=== PATIENT | male | born 1965 | race Caucasian/White ===

== ENCOUNTER 2016-11-21 08:55 | Inpatient (IN) | payer OTHER ==
[~2016-11-21] VITALS: Ht 154.9 cm; Wt 71.5 kg
[~2016-11-21 08:55] MED LIST: PROTONIX
[2016-11-21] MEDS ORDERED: SOD CHLORIDE 0.9% 500 ML IV STA (09:36)
[2016-11-21] MEDS ORDERED: LACTULOSE 30ML CUP PO ONE (10:00)
--- NOTE | 2016-11-21 10:11 | ERD ---
ER Documentation Chief Complaint Date/Time DATE: 11/21/16 TIME: 10:07 Chief Complaint ABNORMAL LABS SENT BY MD MOHAN 50-year-old man referred by PMD for recent jaundice and icterus and abnormal labs. Son who was at the bedside states he has also had 2-3 days of increasing confusion. Patient does have a history of alcoholic cirrhosis. He denies fevers or chills, no blood per rectum or melena, no chest pain or shortness of breath. ROS All systems reviewed and are negative except as per history of present illness. Medications Home Meds Reported Medications Cyanocobalamin* (Vitamin B12*) Unknown Strength Tab, 1 TAB PO DAILY, TAB 11/21/16 Propranolol Hcl* (Propranolol Hcl*) 20 Mg Tablet, 20 MG PO DAILY, TAB 11/21/16 Discontinued Reported Medications [Protonix] No Conflict Check 05/09/16 Allergies Allergies: Coded Allergies: No Known Allergy (Unverified , 11/21/16) PMhx/Soc Alcoholic liver cirrhosis, hypertension, previous ascites, gastritis, anemia History of Surgery: Yes (CEREBRAL THROMBOSIS SX) Anesthesia Reaction: No Hx Neurological Disorder: Yes (STROKE) Hx Respiratory Disorders: No Hx Cardiac Disorders: No Hx Psychiatric Problems: No Hx Miscellaneous Medical Probl: No Hx Alcohol Use: Yes (ETOH) Hx Substance Use: No Hx Tobacco Use: No FmHx Family History: No diabetes Physical Exam Vitals Vital Signs Date Time Temp Pulse Resp B/P Pulse Ox O2 Delivery O2 Flow Rate FiO2 11/21/16 10:51 98.1 79 17 127/89 99 Room Air 11/21/16 08:56 98.1 67 18 128/94 99 Physical Exam GENERAL: Well-developed, dehydrated, jaundiced, mild confusion, afebrile HEENT: Dry mucous membranes, pale conjunctivae, positive jaundice and icterus, extraocular movements intact without pain. No submandibular induration, and no pharyngeal erythema NEURO: Alert and oriented 2, able to follow simple commands and answer simple questions, cranial nerves II through XII intact bilaterally, pupils equal round reactive to light, no focal deficits or facial asymmetry, CARDIAC: Regular rate and rhythm, no murmurs rubs or gallops LUNGS: Clear bilaterally no wheezing crackles or stridor ABDOMEN: Soft nontender, no guarding, no rigidity, no rebound, no psoas sign no obturator sign. Normoactive bowel sounds SKIN: Warm and dry to touch, no abrasions, contusions, or hematomas, no lacerations, no ecchymosis, no target lesions, and without ulcers EXTREMITIES: No clubbing cyanosis, 1+ pitting edema in the lower extremities bilaterally, calves are bilaterally symmetrical, no Homans sign, no popliteal cord sign. Distal pulses equal and bilateral PSYCH: Normal affect without agitation or irritability Result Diagram: 11/21/16 1027 11/21/16 1100 Results 24 hrs Laboratory Tests Test 11/21/16 10:27 11/21/16 11:00 White Blood Count 4.610^3/ul Red Blood Count 4.0510^6/ul Hemoglobin 14.6g/dl Hematocrit 40.6% Mean Corpuscular Volume 100.2fl Mean Corpuscular Hemoglobin 36.0pg Mean Corpuscular Hemoglobin Concent 36.0g/dl Red Cell Distribution Width 15.8% Platelet Count 8910^3/UL Mean Platelet Volume fl Neutrophils % 72.8% Lymphocytes % 15.7% Monocytes % 10.3% Eosinophils % 0.4% Basophils % 0.4% Nucleated Red Blood Cells % 0.0/100WBC Neutrophils # 3.410^3/ul Lymphocytes # 0.710^3/ul Monocytes # 0.510^3/ul Eosinophils # 0.010^3/ul Basophils # 0.010^3/ul Nucleated Red Blood Cells # 0.010^3/ul Urine Color DORETHA Urine Clarity CLEAR Urine pH 7.0 Urine Specific [place] 1.010 Urine Ketones TRACE Urine Nitrite POSITIVE Urine Bilirubin 3+ Urine Ictotest POSITIVE Urine Urobilinogen 2.0 E.U./dL Urine Leukocyte Esterase NEGATIVE Urine Microscopic RBC 0-2/HPF Urine Microscopic WBC 0-2/HPF Urine Squamous Epithelial Cells FEW Urine Bacteria FEW Urine Hemoglobin NEGATIVE Urine Glucose 0.1%% Urine Total Protein TRACE Ammonia 63umol/l Sodium Level 135mmol/L Potassium Level 3.0mmol/L Chloride Level 98mmol/L Carbon Dioxide Level 28mmol/L Anion Gap 12 Blood Urea Nitrogen 9mg/dl Creatinine 0.74mg/dl Glucose Level 189mg/dl Calcium Level 7.1mg/dl Total Bilirubin 14.7mg/dl Direct Bilirubin 10.80mg/dl Indirect Bilirubin 3.9mg/dl Aspartate Amino Transf (AST/SGOT) 300IU/L Alanine Aminotransferase (ALT/SGPT) 61IU/L Alkaline Phosphatase 259IU/L Troponin I 0.017ng/ml Total Protein 7.7g/dl Albumin 2.6g/dl Globulin 5.10g/dl Albumin/Globulin Ratio 0.50 Lipase 99U/L Current Medications Medications (Trade) Dose Ordered Sig/Nereyda Route PRN Reason Start Time Stop Time Status Last Admin Dose Admin Sodium Chloride (NS) 500 ml @ 500 mls/hr Q1H STAT IV 11/21/16 09:36 11/21/16 10:35 DC 11/21/16 10:42 Lactulose 20 gm 20 gm ONCE ONCE PO 11/21/16 10:00 11/21/16 10:01 DC 11/21/16 10:39 Ceftriaxone Sodium (Rocephin) 50 ml @ 100 mls/hr ONCE ONCE IVPB 11/21/16 12:00 11/21/16 12:29 Procedures/MDM IV line was established patient was placed on school lunch monitor rhythm strip revealed a sinus rhythm at about 70 bpm with upright P and T waves. EKG performed, read by me revealed a normal sinus rhythm at 66 bpm, normal axis , narrow QRS complex with no concerning ST elevations or depressions noted although there is prolonged QT of 524 ms. I administered 500 cc of normal saline intra-venously. Chest X-ray 1V Interpreted by me: Soft Tissue: No acute abnormalities Bones: No acute abnormalities Mediastinum/Cardiac Silhouette/Lungs: No acute abnormalities CBC revealed pancytopenia with platelets of 89,000, electrolytes revealed hypokalemia 3, liver function tests were abnormal with transaminitis and hyperbilirubinemia, ammonia elevated at 63, urine analysis was positive for nitrites most likely secondary to bilirubinuria. I treated the patient here with lactulose 20 g p.o. and ceftriaxone 1 g IV. For prolonged QT patient received magnesium 2 g IV and also received potassium supplementation orally. Hematology consultation with Dr. Wilson was obtained she recommended against any transfusion at this time. Patient will be admitted to [facility] for continued medical management Departure Diagnosis: Primary Impression: Jaundice Additional Impressions: Hyperammonemia Acute encephalopathy Hypokalemia Alcoholic cirrhosis of liver Ascites presence: with ascites Qualified Code: K70.31 - Alcoholic cirrhosis of liver with ascites Pancytopenia Condition: LISA Fernandez MD Nov 21, 2016 10:11
[2016-11-21 10:34] LABS: ADD SCAN DIFF NO
[2016-11-21] MEDS ORDERED: PROP20TA4 PO (10:40)
[2016-11-21 10:41] LABS: ABNORMAL IP MESSAGE 1; ADD UMIC YES; BASOPHILS % 0.4 % (0.0-2.0); EOSINOPHILS % 0.4 % (0.0-7.0); HEMATOCRIT 40.6 % (42.0-52.0); HEMOGLOBIN 14.6 g/dl (14.0-18.0); LYMPHOCYTES # 0.7 10^3/ul (0.8-2.9); LYMPHOCYTES % 15.7 % (15.0-51.0); MEAN CORPUSCULAR VOLUME 100.2 fl (82.0-101.0); MONOCYTE # 0.5 10^3/ul (0.3-0.9); MONOCYTES % 10.3 % (0.0-11.0); NEUTROPHIL # 3.4 10^3/ul (1.6-7.5); NEUTROPHILS % 72.8 % (39.0-77.0); PLATELET COUNT 89 10^3/UL (140-415); RED BLOOD COUNT 4.05 10^6/ul (4.70-6.10); RED CELL DISTRIBUTION WIDTH 15.8 % (11.5-14.5); URINE BILIRUBIN (Dip) 3+ (NEGATIVE); URINE BLOOD (Dip) NEGATIVE (NEGATIVE); URINE COLOR AMBER (YELLOW); URINE KETONES (Dip) TRACE (NEGATIVE); URINE LEUKOCYTE ESTERASE (Dip) NEGATIVE (NEGATIVE); URINE NITRITE (Dip) POSITIVE (NEGATIVE); URINE TOTAL PROTEIN (Dip) TRACE (NEGATIVE); URINE UROBILINOGEN (Dip) 2.0 E.U./dL (0.1-1.0); WHITE BLOOD COUNT 4.6 10^3/ul (4.8-10.8)
[2016-11-21] MEDS ORDERED: CYAN500T46 PO (10:41)
--- NOTE | 2016-11-21 10:52 | RADRPT ---
PROCEDURE: XR Chest. CLINICAL INDICATION: chest pain, abdominal pain TECHNIQUE: Single frontal view of the chest was obtained COMPARISON: None FINDINGS: The heart and mediastinum are within normal limits. The lungs are clear. There is no pleural effusion or pneumothorax. RPTAT: AA IMPRESSION: No acute disease. .Gerber Meraz MD, MD Date Time Electronically viewed and signed by .Gerber Meraz MD, on 11/21/2016 10:52 .S/
[2016-11-21 11:21] LABS: ICTOTEST POSITIVE (NEGATIVE)
[2016-11-21 11:24] LABS: URINE RBCS 0-2 /HPF (0)
[2016-11-21 11:25] LABS: BACTERIA,URINE FEW; SQUAMOUS EPITHELIAL CELL,UR FEW
[2016-11-21 11:30] LABS: ALBUMIN 2.6 g/dl (3.3-4.9); ALBUMIN/GLOBULIN RATIO 0.5; BILIRUBIN,DIRECT 10.8 mg/dl (0.00-0.20); BILIRUBIN,INDIRECT 3.9 mg/dl (0-1.1); BILIRUBIN,TOTAL 14.7 mg/dl (0.2-1.3); CALCIUM 7.1 mg/dl (8.4-10.2); CREATININE 0.74 mg/dl (0.61-1.24); TOTAL PROTEIN 7.7 g/dl (6.1-8.1)
[2016-11-21 11:42] LABS: TROPONIN-I 0.017 ng/ml (0.00-0.12)
[2016-11-21] MEDS ORDERED: CEFTRIAXONE 1 GM/50 ML (PMX) 50 ML IVPB ONE (12:00)
[2016-11-21] MEDS ORDERED: POTASSIUM CHLORIDE (SR) 20 MEQ TAB PO STA (12:01)
[2016-11-21 12:10] LABS: INR 3.9; PROTIME 38.9 Sec (12.2-14.2)
[2016-11-21] MEDS ORDERED: MAGNESIUM SULFATE 2 GM/50 ML 50 ML IVPB ONE (12:30)
[2016-11-21] MEDS ORDERED: morphine 2 MG INJ IV PRN (14:30)
[2016-11-21] MEDS ORDERED: NACL 0.9% 3 ML SYG IV SCH (14:30)
[2016-11-21] MEDS ORDERED: ONDANSETRON 4 MG INJ IV PRN (14:30)
[2016-11-21] MEDS ORDERED: PHYTONADIONE 10 MG in DEXTROSE 5% 50 ML IVPB ONE (15:00)
[2016-11-21 15:49] VITALS: TEMP 98.1
[2016-11-21 16:20] VITALS: BP 103/68; PULSE 65; RESP 16
[2016-11-21 16:49] VITALS: Ht 154.9 cm; Wt 71.5 kg
[2016-11-21] MEDS: FUROSEMIDE 20 MG INJ IV SCH (17:27)
--- NOTE | 2016-11-21 18:33 | HP ---
DATE OF ADMISSION: 11/21/2016 TIME OF EVALUATION: 1330. REASON FOR ADMISSION: Sent in by primary MD because of abnormal labs. CONSULTATIONS: Dr. Nori Wilson, Hematology. HISTORY OF PRESENT ILLNESS: This is a 50-year-old male with past medical history of alcoholic liver cirrhosis, essential hypertension, and prior history of stroke who was brought to the emergency room as per the instructions of the patient's MD. As per the patient's family, he had his labs drawn a couple of days ago, and patient's MD called the patient's family and asked the patient to be brought to the nearest emergency room. As per the patient's family, he has also been confused more or less for the past 2 days. The patient also was noticeably jaundiced as per the family for the past few days. There were no reported fevers or chills. The patient denied any dyspnea, abdominal pain, chest pain, nausea, vomiting, diarrhea, hematochezia, melena or hemetemesis. The patient follows up with a asbestos microscopist as outpatient. He also follows up with Dr. Nori Wilson for underlying thrombocytopenia and coagulopathy. In the emergency room, the patient's workup showed that the patient has significant coagulopathy with INR of 3.90. The patient's comprehensive metabolic panel revealed hyperbilirubinemia with transaminitis. The patient had thrombocytopenia with a platelet count of 89,000. The patient underwent a chest x-ray that was negative for any acute cardiopulmonary findings. The patient's urinalysis showed positive nitrite and urine microscopic WBC of 0 to 2. PAST MEDICAL HISTORY: Alcoholic liver cirrhosis, portal hypertension, stroke. PAST SURGICAL HISTORY: Surgery for cerebral thrombosis. HOME MEDICATIONS: 1. Propranolol 20 mg p.o. daily. 2. Cyanocobalamin 1 tablet p.o. daily. ALLERGIES: NO KNOWN DRUG ALLERGIES. SOCIAL HISTORY: The patient lives at home with his family. No recent history of tobacco, alcohol or illicit drug use. REVIEW OF SYSTEMS: Negative other than what is mentioned in history of present illness. PHYSICAL EXAMINATION: VITAL SIGNS: Temperature 98.7, pulse rate 61, respiratory rate 17, blood pressure 90/54, oxygen saturation 100% on room air. GENERAL: This is a well-built male lying in bed, no apparent distress. HEENT: Head normocephalic and atraumatic. Eyes: Icteric sclerae. Conjunctivae clear. ENT: Nasal septum is midline. Oral mucosa is dry. NECK: Supple. No JVD noticed. RESPIRATORY: Bilaterally clear to auscultation. No adventitious breath sounds heard. No use of accessory muscles of respiration. CARDIAC: Regular rate and rhythm. No murmurs heard. GASTROINTESTINAL: Abdomen slightly distended. Nontender. Bowel sounds positive in all 4 quadrants. GENITOURINARY: Deferred. EXTREMITIES: No cyanosis, no clubbing. Bilateral lower extremity 1+ pitting edema. Peripheral pulses palpable. NEUROLOGIC: The patient is awake and alert. Oriented x2 to 3. Periods of confusion. SKIN: Icterus. LABORATORY AND DIAGNOSTIC DATA: WBC 4.6, hemoglobin 14.6, hematocrit 40.6, platelet count 89. Sodium 137, potassium 3.0, chloride 98, carbon dioxide 28, anion gap 12, BUN 9, creatinine 0.74, glucose 189, calcium 7.1, total bilirubin 14.7, direct bilirubin 3.9, AST 300, ALT 60, alkaline phosphatase 259. Ammonia 63. Troponin 0.017. Total protein 7.1, albumin 2.6, globulin 5.10, lipase 99. PT 38.9, INR 3.90. Chest x-ray: No acute cardiopulmonary process. IMPRESSION: This is a 50-year-old male with past medical history of alcoholic liver cirrhosis who came to the emergency room as referred by the patient's MD who was found to have evidence of significant coagulopathy as well as transaminitis with hyperbilirubinemia who will be admitted here for further treatment and evaluation. ASSESSMENT AND PLAN: 1. Alcoholic liver cirrhosis. The patient will be started on rifaximin as well as diuretics. The patient has no evidence of any significant ascites. 2. Hyperammonemia. The patient was started on lactulose. The patient's mental status will be monitored closely. 3. Acute encephalopathy, most probably metabolic encephalopathy secondary to elevated ammonia. Continue lactulose and rifaximin. 4. Coagulopathy with INR of 3.90. No evidence of any active bleeding. The patient will be given a single dose of vitamin K. We will avoid any anticoagulants on this patient. 5. Transaminitis with hyperbilirubinemia. Most probably secondary to alcoholic liver cirrhosis. Will avoid any hepatotoxic medications on this patient. A gallbladder ultrasound will be ordered to evaluate for any acute processes including cholecystitis or common bile duct dilatation. Plan. The patient will be admitted to inpatient medical/surgical floor. The patient will be started on a regular diet. The patient will remain a Full Code. He will be started on DVT prophylaxis with sequential compression devices. He will be started on gastrointestinal prophylaxis. The rest of the patient's management will be based on the clinical course, the results of the diagnostics, and inputs from consultants. Based on the patient's clinical presentation, he most probably requires at least 2 midnights' stay for further management and evaluation of his clinical presentation. The case and management of this patient was fully discussed with Dr. Cullen. GIOVANA CULLEN MD, AM/SHYAM Conf#: [id number] DID#: [id number] MTDD
[2016-11-21 20:15] VITALS: BP 99/66; RESP 20
[2016-11-21] MEDS: RIFAXIMIN 550 MG TAB PO SCH (20:40)
[2016-11-21] MEDS: LACTULOSE 30ML CUP PO SCH (22:13)
[2016-11-22] MEDS: FUROSEMIDE 20 MG INJ IV SCH (05:22)
[2016-11-22] MEDS: LACTULOSE 30ML CUP PO SCH ×2 (05:24→14:26)
[2016-11-22 05:40] LABS: ADD SCAN DIFF NO
[2016-11-22 05:51] LABS: ABNORMAL IP MESSAGE 1; BASOPHILS % 0.9 % (0.0-2.0); EOSINOPHILS # 0.1 10^3/ul (0.0-0.5); EOSINOPHILS % 2.1 % (0.0-7.0); HEMOGLOBIN 12.3 g/dl (14.0-18.0); LYMPHOCYTES # 1.2 10^3/ul (0.8-2.9); LYMPHOCYTES % 24.5 % (15.0-51.0); MEAN CORPUSCULAR HEMOGLOBIN 34.9 pg (29.0-33.0); MEAN CORPUSCULAR HGB CONC 35.1 g/dl (32.0-37.0); MEAN CORPUSCULAR VOLUME 99.4 fl (82.0-101.0); MONOCYTE # 0.7 10^3/ul (0.3-0.9); MONOCYTES % 15.6 % (0.0-11.0); NEUTROPHIL # 2.7 10^3/ul (1.6-7.5); NEUTROPHILS % 56.5 % (39.0-77.0); RED BLOOD COUNT 3.52 10^6/ul (4.70-6.10); RED CELL DISTRIBUTION WIDTH 15.8 % (11.5-14.5); WHITE BLOOD COUNT 4.7 10^3/ul (4.8-10.8)
[2016-11-22] MEDS ORDERED: PANTOPRAZOLE (EC) 40 MG TAB PO SCH (06:00)
[2016-11-22 06:10] LABS: INR 3.53; PROTIME 35.9 Sec (12.2-14.2); PT RATIO 2.8
[2016-11-22 06:11] LABS: PARTIAL THROMBOPLASTIN TIME 58.3 Sec (25.0-35.0)
[2016-11-22 07:03] LABS: ALBUMIN 2.2 g/dl (3.3-4.9); ALBUMIN/GLOBULIN RATIO 0.46; BILIRUBIN,DIRECT 10.5 mg/dl (0.00-0.20); BILIRUBIN,INDIRECT 3.4 mg/dl (0-1.1); BILIRUBIN,TOTAL 13.9 mg/dl (0.2-1.3); CALCIUM 6.8 mg/dl (8.4-10.2); CREATININE 0.75 mg/dl (0.61-1.24); TOTAL PROTEIN 6.9 g/dl (6.1-8.1)
[2016-11-22 07:08] LABS: POTASSIUM 2.8 mmol/L (3.5-5.1)
[2016-11-22 07:09] LABS: MAGNESIUM 1.7 mg/dl (1.7-2.5)
[2016-11-22 07:10] LABS: HDL CHOLESTEROL 7 mg/dl (28-71)
[2016-11-22 08:16] VITALS: BP 102/63; RESP 18
[2016-11-22 08:17] LABS: PHOSPHORUS 2.6 mg/dl (2.5-4.9); TRIGLYCERIDES 75 mg/dl (0-149)
[2016-11-22 08:18] LABS: CHOLESTEROL < 50 mg/dl (100-200)
[2016-11-22] MEDS ORDERED: PROPRANOLOL 20 MG TAB PO SCH (09:00)
--- NOTE | 2016-11-22 09:07 | RADRPT ---
PROCEDURE: US Abdomen. CLINICAL INDICATION: elevated LFTs TECHNIQUE: Multiple real-time images were acquired of the patient's abdomen and retroperitoneum ut ilizing a high resolution transducer. COMPARISON: None FINDINGS: The liver demonstrates increased and coarse echogenicity. The liver is nodular in contour. The liver is normal in size and no focal solid lesions are seen. The liver measures 13.1 cm in length. The po rtal vein is patent with normal direction of flow. No intrahepatic biliary dilatation is seen. There is a moderate amount of sludge within the gallbladder. In addition there are calcified stones within the gallbladder. The gallbladder wall is thickened measuring 5 mm. There is mild to moderate pericholecystic fluid. The common bile duct measures 5 mm in maximal dimension. The visualized portions of the pancreas are unremarkable. The tail of the pancreas is not seen. No free fluid is identified. The right kidney is normal in size, and demonstrate normal echogenicity and cortical thickness. The right kidney measures 10.4 cm in long dimension. There is no evidence of hydronephrosis. There are no kidney stones. IMPRESSION: Findings suspicious for liver cirrhosis. Multiple calcified stones and sludge within the gallbladder. Mild gallbladder wall thickening and e vidence of pericholecystic fluid. The findings may represent acute cholecystitis. RPTAT: AA .Gerber Meraz MD, MD Date Time Electronically viewed and signed by .Gerber Meraz MD, MD on 11/22/2016 09:06 .S/
[2016-11-22] MEDS: POTASSIUM CHLORIDE 250 ML IVPB SCH ×2 (09:14→13:53)
[2016-11-22] MEDS: RIFAXIMIN 550 MG TAB PO SCH (09:14)
--- NOTE | 2016-11-22 10:23 | CONS ---
Date/Time of Note Date/Time of Note DATE: 11/22/16 TIME: 10:05 Assessment/Plan Assessment/Plan Chief Complaint/Hosp Course 50 yo male with thrombocytopenia secondary to EtOH cirrhosis. Pt has had long standing thrombocytopenia and is being followed in my office for this. In August the platelet count was noted to be 29K and in September it had declined to 16K. Per the lab the platelet count is 21K. Although patient is confused and suffering form hepatic encephalopathy there is no evidence of bleeding at this time. -will check LDH and review peripheral smear to ensure to evidence of TTP. -recheck cbc at this time. if platelet count is less that 10K , will consider starting Nplate or Promacta as an out patient. given there is no evidence of bleed, will not transfuse patient at this time -once patient is stable from a mental status standpoint, he can be discharged to follow up in our hematology clinic -pt is to follow up with his belt maker helper as well. He is presumably on a liver transplant list Approximately 40 min were spent at patient's bedside and in coordination of his care Problems: Consultation Date/Type/Reason Admit Date/Time Nov 21, 2016 at 12:28 Date of Consultation: Nov 22, 2016 Type of Consultation: Hematology Reason for Consultation thrombocytopenia Referring Provider: GIOVANA THRASHER NP Hx of Present Illness 50-year-old male with alcoholic cirrhosis who was brought to the emergency room as per the instructions of the patient's MD for thrombocytopenia. Per family patient was also noted to be more confused and jaundiced for the past 2 days. Pt followed in my clinic for thrombocytopenia related to his EtOH cirrhosis. Of note, in our office on 09/04/16 his platelet count was 29 and on 09/18/16 it was 16. Here in the ER yesterday it was noted to be 89K. Of note In the emergency room, the patient's workup showed that the patient has a significant coagulopathy with INR of 3.90. The patient's comprehensive metabolic panel revealed hyperbilirubinemia with transaminitis.The patient underwent a chest x-ray that was negative for any acute cardiopulmonary findings. The patient's urinalysis showed positive nitrite and urine microscopic WBC of 0 to 2. Pt is currently on antibiotics. Eyes: no complaints ENT: no complaints Respiratory: no complaints Cardiovascular: no complaints Gastrointestinal: no complaints Genitourinary: no complaints Musculoskeletal: bone/joint pain Skin: no complaints Neurologic: no complaints Past Medical History alcoholic liver cirrhosis essential hypertension prior history of stroke Family History Significant Family History: no pertinent family hx Social History Alcohol Use: none Smoking Status: Never smoker Drug Use: none Exam/Review of Systems Vital Signs Vitals Vital Signs Date Time Temp Pulse Resp B/P Pulse Ox O2 Delivery O2 Flow Rate FiO2 11/22/16 08:16 98.3 68 18 102/63 98 11/21/16 16:20 Room Air Intake and Output 11/21/16 11/21/16 11/22/16 15:00 23:00 07:00 Intake Total 600 ml 480 ml 240 ml Balance 600 ml 480 ml 240 ml Exam Constitutional: oriented Psych: no complaints Head: normocephalic Eyes: icteric ENMT: nl external ears & nose Neck: non-tender, supple Respiratory: clear to auscultation, normal air movement Cardiovascular: nl pulses, regular rate and rhythm Gastrointestinal: soft Musculoskeletal: nl extremities to inspection, nl gait and stance Extremities: normal pulses Results Result Diagram: 11/22/16 0510 11/22/16 0505 Results 24 hrs Laboratory Tests Test 11/21/16 10:27 11/21/16 11:00 11/21/16 12:00 11/21/16 14:30 White Blood Count 4.6 L Red Blood Count 4.05 L Hemoglobin 14.6 Hematocrit 40.6 L Mean Corpuscular Volume 100.2 Mean Corpuscular Hemoglobin 36.0 H Mean Corpuscular Hemoglobin Concent 36.0 Red Cell Distribution Width 15.8 H Platelet Count 89 L Mean Platelet Volume Neutrophils % 72.8 Lymphocytes % 15.7 Monocytes % 10.3 Eosinophils % 0.4 Basophils % 0.4 Nucleated Red Blood Cells % 0.0 Neutrophils # 3.4 Lymphocytes # 0.7 L Monocytes # 0.5 Eosinophils # 0.0 Basophils # 0.0 Nucleated Red Blood Cells # 0.0 Prothrombin Time 38.9 H Prothrombin Time Ratio 3.0 INR International Normalized Ratio 3.90 Urine Color DORETHA Urine Clarity CLEAR Urine pH 7.0 Urine Specific [place] 1.010 Urine Ketones TRACE Urine Nitrite POSITIVE H Urine Bilirubin 3+ H Urine Ictotest POSITIVE Urine Urobilinogen 2.0 E.U./dL H Urine Leukocyte Esterase NEGATIVE Urine Microscopic RBC 0-2 Urine Microscopic WBC 0-2 Urine Squamous Epithelial Cells FEW Urine Bacteria FEW Urine Hemoglobin NEGATIVE Urine Glucose 0.1% H Urine Total Protein TRACE Ammonia 63 H Sodium Level 135 Potassium Level 3.0 L Chloride Level 98 Carbon Dioxide Level 28 Anion Gap 12 Blood Urea Nitrogen 9 Creatinine 0.74 Glucose Level 189 Calcium Level 7.1 L Total Bilirubin 14.7 H Direct Bilirubin 10.80 H Indirect Bilirubin 3.9 H Aspartate Amino Transf (AST/SGOT) 300 H Alanine Aminotransferase (ALT/SGPT) 61 Alkaline Phosphatase 259 H Troponin I 0.017 Total Protein 7.7 Albumin 2.6 L Globulin 5.10 H Albumin/Globulin Ratio 0.50 Lipase 99 Vitamin D 1,25-Dihydroxy 55.1 Thyroid Stimulating Hormone (TSH) 3.820 Free Thyroxine 2.31 H Hemoglobin A1c 4.6 Test 11/22/16 05:05 11/22/16 05:10 Sodium Level 136 Potassium Level 2.8 *L Chloride Level 104 Carbon Dioxide Level 27 Anion Gap 8 Blood Urea Nitrogen 11 Creatinine 0.75 Glucose Level 95 # Calcium Level 6.8 L Total Bilirubin 13.9 H Direct Bilirubin 10.50 H Indirect Bilirubin 3.4 H Aspartate Amino Transf (AST/SGOT) 255 H Alanine Aminotransferase (ALT/SGPT) 63 Alkaline Phosphatase 230 H Total Protein 6.9 Albumin 2.2 L Globulin 4.70 H Albumin/Globulin Ratio 0.46 White Blood Count 4.7 L Red Blood Count 3.52 L Hemoglobin 12.3 L Hematocrit 35.0 L Mean Corpuscular Volume 99.4 Mean Corpuscular Hemoglobin 34.9 H Mean Corpuscular Hemoglobin Concent 35.1 Red Cell Distribution Width 15.8 H Platelet Count Mean Platelet Volume Neutrophils % 56.5 Lymphocytes % 24.5 Monocytes % 15.6 H Eosinophils % 2.1 Basophils % 0.9 Nucleated Red Blood Cells % 0.0 Neutrophils # 2.7 Lymphocytes # 1.2 Monocytes # 0.7 Eosinophils # 0.1 Basophils # 0.0 Nucleated Red Blood Cells # 0.0 Prothrombin Time 35.9 H Prothrombin Time Ratio 2.8 INR International Normalized Ratio 3.53 Activated Partial Thromboplast Time 58.3 H Phosphorus Level 2.6 Magnesium Level 1.7 Ammonia 75 H Triglycerides Level 75 Cholesterol Level < 50 L LDL Cholesterol, Calculated HDL Cholesterol 7 L Cholesterol/HDL Ratio Medications Medications Current Medications Ondansetron HCl (Zofran Inj) 4 mg Q6H PRN IV NAUSEA AND/OR VOMITING; Start 4/6 /17 at 14:30 Morphine Sulfate (morphine) 2 mg Q4H PRN IV SEVERE PAIN LEVEL 7-10; Start at 14:30 Pantoprazole (Protonix Tab) 40 mg DAILY@06 PO ; Start 11/22/16 at 06:00 Lactulose (Enulose) 20 gm Q8 PO Last administered on 11/21/16 22:13; Admin Dose 20 GM; Start 11/21/16 at 22:00 Rifaximin 550 mg 550 mg BID PO Last administered on 11/22/16 09:14; Admin Dose 550 MG; Start 11/21/16 at 21:00 Ceftriaxone Sodium (Rocephin) 50 ml @ 100 mls/hr Q24H IVPB ; Start 11/22/16 at 12:00 Propranolol HCl 20 mg 20 mg DAILY PO ; Start 11/22/16 at 09:00 Potassium Chloride (KCl 40 MEQ/250 ML NS) 250 ml @ 62.5 mls/hr Q4H IVPB Last administered on 11/22/16 09:14; Admin Dose 62.5 MLS/HR; Start 11/22/16 at 09:00; Stop 11/22/16 at 16:59 CADY RESENDEZ M.D. Nov 22, 2016 10:22
[2016-11-22] MEDS ORDERED: CEFTRIAXONE 1 GM/50 ML (PMX) 50 ML IVPB SCH (12:00)
--- NOTE | 2016-11-22 12:28 | PDOCDIS ---
Discharge Instructions CONDITION Patient Condition: Good HOME CARE INSTRUCTIONS: Special Diet: low salt diet ACTIVITY: Activity Restrictions: Slowly Increase Activity Rest between Activity Avoid heavy lifting Avoid Heavy Housework FOLLOW UP/APPOINTMENTS Appointments follow up with his own PMD through HMO insurance in 1-2 week after discharge NIKKO GUY MD Nov 22, 2016 12:28
[2016-11-22] MEDS ORDERED: FURO-110 PO (12:29)
[2016-11-22] MEDS ORDERED: Lactulose PO (12:29)
[2016-11-22] MEDS ORDERED: SPIR25TA PO (12:29)
[2016-11-22 13:17] LABS: ADD SCAN DIFF NO
[2016-11-22 13:20] LABS: ABNORMAL IP MESSAGE 1; HEMATOCRIT 36.6 % (42.0-52.0); HEMOGLOBIN 12.1 g/dl (14.0-18.0); MEAN CORPUSCULAR HEMOGLOBIN 33.9 pg (29.0-33.0); MEAN CORPUSCULAR HGB CONC 33.1 g/dl (32.0-37.0); MEAN CORPUSCULAR VOLUME 102.5 fl (82.0-101.0); RED BLOOD COUNT 3.57 10^6/ul (4.70-6.10); RED CELL DISTRIBUTION WIDTH 15.9 % (11.5-14.5); WHITE BLOOD COUNT 4.4 10^3/ul (4.8-10.8)
[2016-11-22 13:26] LABS: PLATELET COUNT 22 10^3/UL (140-415)
[2016-11-22 14:47] LABS: LYMPHOCYTES # 0.9 10^3/ul (0.8-2.9); MONOCYTE # 0.6 10^3/ul (0.3-0.9); NEUTROPHIL # 2.9 10^3/ul (1.6-7.5)
[2016-11-22 14:48] LABS: PLATELET ESTIMATE PLT APPEAR DECREASED
[2016-11-23 10:16] LABS: PLATELET COUNT 21 10^3/UL (140-415)
--- NOTE | 2016-11-26 17:22 | DS ---
DATE OF ADMISSION: 11/21/2016 DATE OF DISCHARGE: 11/22/2016 FINAL DISCHARGE DIAGNOSES: 1. Altered mental status secondary to acute hepatic encephalopathy. 2. Acute on chronic thrombocytopenia secondary to liver cirrhosis. 3. Hyperammonemia secondary to liver cirrhosis. 4. Coagulopathy with INR of 3.9 secondary to liver cirrhosis. 5. Transaminitis with hyperbilirubinemia secondary to decompensated liver cirrhosis. 6. History of alcoholic liver cirrhosis. CONSULTATIONS DONE DURING THIS HOSPITALIZATION: Oncology consult, Dr. Nori Wilson. HOSPITAL COURSE: This is a 50-year-old male with a past medical history of alcoholic liver cirrhosi s, hypertension and a prior history of stroke who was brought into the emergency room as per the ins tructions of his ____oncologist. The patient is noted to have a severe thrombocytopenia with his pl atelets down. He was also very confused, was noted to have acute hepatic encephalopathy and hyperam monemia. His chest x-ray was negative for any acute findings. The patient's urinalysis shows posit lily nitrite and urine microscopic WBC of 0 to 2. He gets admitted for altered mental status seconda ry to acute hepatic encephalopathy and elevated ammonia level. He also had a transaminitis with hyp erbilirubinemia secondary to a decompensated liver cirrhosis. The patient was evaluated by oncologi st, Dr. Nori Wilson, regarding his thrombocytopenia. He was given some vitamin K for his coagulop athy and INR was 3.9. He remains symptomatically much better, stable, improved after getting the IV fluids and lactulose for his high ammonia. He was back to his normal baseline status and he was di scharged home with prescriptions of Lactulose p.r.n. constipation/altered mental status. His family was at bedside and they had been explained about the discharge plan and followup instructions. The y understood and verbalized understanding. DISPOSITION: To home. DISCHARGE CONDITION: Stable and improved compared to admission. DISCHARGE ACTIVITIES: As tolerated, slowly resume to the normal baseline activity. DISCHARGE DIET: Low fat, low sodium diet. DISCHARGE MEDICATIONS: As per medical reconciliation. DISCHARGE FOLLOWUP AND INSTRUCTIONS: The patient is to follow with his own primary care doctor [facility] his O insurance. He has been explained about the discharge plan and followup instructions. He understood and verbalized understanding. Dictated By: NIKKO GUY MD, KP/SHYAM Conf#: [id number] DID#: [id number]
== END 2016-11-22 18:23 | disposition home or self-care (01) | DRG 433 ==
LOC: E/R 08:55 → MS2 12:28
PROVIDERS: ADMIT Family Medicine; ATTEND Family Medicine
DX: K70.40 Alcoholic hepatic failure without coma (principal); D68.9 Coagulation defect, unspecified; K70.30 Alcoholic cirrhosis of liver without ascites; E72.20 Disorder of urea cycle metabolism, unspecified; D69.59 Other secondary thrombocytopenia; F10.20 Alcohol dependence, uncomplicated; I10 Essential (primary) hypertension; Z86.73 Personal history of transient ischemic attack (TIA), and cerebral infarction without residual deficits
CPT/HCPCS: 36415; 71010; 76705; 80053; 80061; 81001; 81003; 82140; 82652; 83036; 83615; 83690; 83735; 84100; 84439; 84443; 84484; 85025; 85610; 85730; 86850; 86900; 86901; 87086; 93005; 96361; 96365; 96366; 96367; 96375; J1940; J0696; J3475; J3480; J7040

== ENCOUNTER 2016-12-14 09:18 | Inpatient (IN) | payer OTHER ==
[~2016-12-14] VITALS: Ht 157.5 cm; Wt 79.7 kg
[~2016-12-14 09:18] MED LIST changes: +CYAN500T46 PO; +FURO-110 PO; +Lactulose PO; -PROTONIX; +SPIR25TA PO
--- NOTE | 2016-12-14 10:47 | ERA ---
ER Documentation Chief Complaint Date/Time DATE: 12/14/16 TIME: 10:43 Chief Complaint AB PAIN SINCE THIS MORNING HX OF CIRRHOSIS HPI Patient is a 50-year-old male with cirrhosis who presents with gradual onset, constant, progressive generalized weakness and confusion for the last 3 weeks. The patient was hospitalized with hepatic encephalopathy at that time, and since discharge is been getting progressively weak. His daughter states that he is falling onto his knees twice. Denies any fall with head trauma. This morning the patient had a large volume of bright red blood per rectum. No vomiting or hematemesis. No fevers. Patient's abdomen has become progressively more distended and he has complained of abdominal pain for 1 day. Denies chest pain or shortness of breath. Patient is compliant with medication. He has not been eating well, but his daughters given him Pedialyte and Ensure. He has had increased lower extremity edema over the last 3 weeks. ROS All systems reviewed and are negative except as per history of present illness. Medications Home Meds Active Scripts Spironolactone* (Aldactone*) 25 Mg Tablet, 25 MG PO DAILY, #30 TAB Prov:NIKKO GUY MD 11/22/16 Furosemide* (Lasix*) 20 Mg Tablet, 20 MG PO DAILY, #60 TAB Prov:NIKKO GUY MD 11/22/16 [Lactulose] 20 GM/30 ML SOLN No Conflict Check, 20 GM PO Q8 Y for constipation for 30 Days Prov:NIKKO GUY MD 11/22/16 Reported Medications Cyanocobalamin* (Vitamin B12*) Unknown Strength Tab, 1 TAB PO DAILY, TAB 11/21/16 Allergies Allergies: Coded Allergies: No Known Allergy (Unverified , 11/21/16) PMhx/Soc Past medical history: Alcoholic cirrhosis, subdural hematoma Past surgical history: Craniotomy for subdural hematoma Social history: Denies current tobacco or alcohol. Former heavy alcohol use. History of Surgery: Yes Anesthesia Reaction: No Hx Neurological Disorder: No Hx Respiratory Disorders: No Hx Cardiac Disorders: No Hx Psychiatric Problems: No Hx Miscellaneous Medical Probl: No Hx Alcohol Use: Yes (5 bottles pern day. stopped 3 months ago.) Hx Substance Use: No Hx Tobacco Use: No FmHx Family History: No coronary disease, No diabetes Physical Exam Vitals Vital Signs Date Time Temp Pulse Resp B/P Pulse Ox O2 Delivery O2 Flow Rate FiO2 12/14/16 13:29 66 20 99/64 99 Room Air 12/14/16 12:48 98.1 65 21 100/62 99 Room Air 12/14/16 09:21 98.1 81 18 123/64 99 Physical Exam Const: Alert, lethargic Head: Atraumatic, craniotomy scar right parietal area Eyes: Pupils equal, round, and reactive. Severe icterus, no pallor ENT: Normal External Ears, Nose and Mouth. Mucous membranes moist Neck: Full range of motion. No JVD. No meningismus. Resp: Diminished breath sounds at right base, no wheezes or rales Cardio: Regular rate and rhythm, no murmurs Abd: Soft, non tender, distended. No guarding, no rebound Skin: No petechiae or rashes Back: No midline or flank tenderness Ext: No cyanosis, 2+ pitting edema bilateral legs Neur: Awake and alert, slow responsiveness, moves and feels 4 extremities appropriately, cranial nerves II through XII intact bilaterally, positive asterixis Psych: Normal Mood and Affect Result Diagram: 12/14/16 1040 12/14/16 1040 Results 24 hrs Laboratory Tests Test 12/14/16 10:40 12/14/16 13:00 White Blood Count 8.110^3/ul Red Blood Count 3.7910^6/ul Hemoglobin 13.4g/dl Hematocrit 36.5% Mean Corpuscular Volume 96.3fl Mean Corpuscular Hemoglobin 35.4pg Mean Corpuscular Hemoglobin Concent 36.7g/dl Red Cell Distribution Width 15.3% Platelet Count 3110^3/UL Mean Platelet Volume 11.6fl Neutrophils % 72.4% Lymphocytes % 9.9% Monocytes % 12.5% Eosinophils % 4.1% Basophils % 0.5% Nucleated Red Blood Cells % 0.0/100WBC Neutrophils # 5.810^3/ul Lymphocytes # 0.810^3/ul Monocytes # 1.010^3/ul Eosinophils # 0.310^3/ul Basophils # 0.010^3/ul Nucleated Red Blood Cells # 0.010^3/ul Prothrombin Time 31.0Sec Prothrombin Time Ratio 2.4 INR International Normalized Ratio 2.93 Sodium Level 118mmol/L Potassium Level 3.4mmol/L Chloride Level 81mmol/L Carbon Dioxide Level 26mmol/L Anion Gap 14 Blood Urea Nitrogen 27mg/dl Creatinine 1.12mg/dl Glucose Level 128mg/dl Calcium Level 8.0mg/dl Total Bilirubin 18.4mg/dl Direct Bilirubin 13.80mg/dl Indirect Bilirubin 4.6mg/dl Aspartate Amino Transf (AST/SGOT) 195IU/L Alanine Aminotransferase (ALT/SGPT) 108IU/L Alkaline Phosphatase 245IU/L Ammonia 34umol/l Total Protein 8.1g/dl Albumin 2.5g/dl Globulin 5.60g/dl Albumin/Globulin Ratio 0.44 Urine Color DORETHA Urine Clarity CLEAR Urine pH 6.5 Urine Specific [place] <=1.005 Urine Ketones NEGATIVE Urine Nitrite NEGATIVE Urine Bilirubin 3+ Urine Ictotest POSITIVE Urine Urobilinogen 0.2 E.U./dL Urine Leukocyte Esterase NEGATIVE Urine Hemoglobin NEGATIVE Urine Glucose 0.25%% Urine Total Protein NEGATIVE Current Medications Medications (Trade) Dose Ordered Sig/Nereyda Route PRN Reason Start Time Stop Time Status Last Admin Dose Admin Lactulose (Enulose) 20 gm ONCE ONCE PO 12/14/16 11:00 12/14/16 11:01 DC 12/14/16 10:59 Ondansetron HCl (Zofran Inj) 4 mg ER BRIDGE PRN IV NAUSEA AND/OR VOMITING 12/14/16 14:30 12/15/16 14:29 Acetaminophen (Tylenol Tab) 650 mg ER BRIDGE PRN PO MILD PAIN/FEVER 12/14/16 14:30 12/15/16 14:29 Procedures/MDM Chest x-ray: IMPRESSION: 1. Low lung volumes with basilar atelectasis. MDM: Patient with cirrhosis presents with generalized weakness that is progressive for the last 3 weeks. The patient has been more confused, and taking poor oral intake. Patient also has increased ascites and lower extremity edema despite taking Lasix and spironolactone. Lab workup shows significant hyponatremia with sodium of 118. Creatinine is not elevated to suggest hepatorenal syndrome. Ammonia is marginally elevated at 34 despite finding of asterixis. Patient was given a dose of lactulose. Patient does not have fever or other clear signs of infection. A ultrasound-guided paracentesis was performed by radiology and fluid sent for cell count to exclude SBP. Culture was also sent. I will defer antibiotics until result is available. I have also ordered a head CT given the patient's significant coagulopathy and thrombocytopenia to exclude intracranial bleed. There are no focal neurologic findings on exam. Due to volume overload, I believe that fluid restriction is the best initial management for the patient's hyponatremia, and further advice can be provided by nephrology. I discussed the case with Dr. Dean, who will be admitting the patient. I also sent her to Dr. Martino, who will review the head CT result. Departure Diagnosis: Primary Impression: Hyponatremia Additional Impressions: Ascites Cirrhosis Coagulopathy Thrombocytopenia Condition: TOMÁS Talamantes MD Dec 14, 2016 10:47
[2016-12-14 11:00] LABS: ADD SCAN DIFF NO
[2016-12-14] MEDS ORDERED: LACTULOSE 30ML CUP PO ONE (11:00)
[2016-12-14 11:23] LABS: ALBUMIN 2.5 g/dl (3.3-4.9); INR 2.93; PT RATIO 2.4
[2016-12-14 11:24] LABS: POTASSIUM 3.4 mmol/L (3.5-5.1)
[2016-12-14 11:26] LABS: BILIRUBIN,DIRECT 13.8 mg/dl (0.00-0.20); BILIRUBIN,INDIRECT 4.6 mg/dl (0-1.1); BILIRUBIN,TOTAL 18.4 mg/dl (0.2-1.3); CREATININE 1.12 mg/dl (0.61-1.24); TOTAL PROTEIN 8.1 g/dl (6.1-8.1)
[2016-12-14 11:28] LABS: ABNORMAL IP MESSAGE 1; ALBUMIN/GLOBULIN RATIO 0.44; BASOPHILS % 0.5 % (0.0-2.0); EOSINOPHILS # 0.3 10^3/ul (0.0-0.5); EOSINOPHILS % 4.1 % (0.0-7.0); HEMATOCRIT 36.5 % (42.0-52.0); HEMOGLOBIN 13.4 g/dl (14.0-18.0); LYMPHOCYTES # 0.8 10^3/ul (0.8-2.9); LYMPHOCYTES % 9.9 % (15.0-51.0); MEAN CORPUSCULAR HEMOGLOBIN 35.4 pg (29.0-33.0); MEAN CORPUSCULAR HGB CONC 36.7 g/dl (32.0-37.0); MEAN CORPUSCULAR VOLUME 96.3 fl (82.0-101.0); MEAN PLATELET VOLUME 11.6 fl (7.4-10.4); MONOCYTES % 12.5 % (0.0-11.0); NEUTROPHIL # 5.8 10^3/ul (1.6-7.5); NEUTROPHILS % 72.4 % (39.0-77.0); PLATELET COUNT 31 10^3/UL (140-415); RED BLOOD COUNT 3.79 10^6/ul (4.70-6.10); RED CELL DISTRIBUTION WIDTH 15.3 % (11.5-14.5); WHITE BLOOD COUNT 8.1 10^3/ul (4.8-10.8)
--- NOTE | 2016-12-14 11:57 | RADRPT ---
PROCEDURE: Chest Radiograph. CLINICAL INDICATION: Altered mental status TECHNIQUE: Single frontal chest radiograph. COMPARISON: Chest radiograph 11/21/2016 FINDINGS: The cardiomediastinal silhouette is within normal limits. Lung volumes are decreased in there is ri ght greater than left basilar atelectasis. No confluent or lobar infiltrate is seen. No pleural ef fusion is identified. The bones are intact. IMPRESSION: 1. Low lung volumes with basilar atelectasis. RPTAT: GG .Roger Bell MD, MD Date Time Electronically viewed and signed by .Roger Bell MD, MD on 12/14/2016 11:57 .B/
[2016-12-14 12:48] VITALS: TEMP 98.1
[2016-12-14 13:18] LABS: ADD UMIC NO; URINE BILIRUBIN (Dip) 3+ (NEGATIVE); URINE BLOOD (Dip) NEGATIVE (NEGATIVE); URINE COLOR AMBER (YELLOW); URINE KETONES (Dip) NEGATIVE (NEGATIVE); URINE LEUKOCYTE ESTERASE (Dip) NEGATIVE (NEGATIVE); URINE NITRITE (Dip) NEGATIVE (NEGATIVE); URINE TOTAL PROTEIN (Dip) NEGATIVE (NEGATIVE); URINE UROBILINOGEN (Dip) 0.2 E.U./dL (0.1-1.0)
[2016-12-14 13:41] LABS: ICTOTEST POSITIVE (NEGATIVE)
[2016-12-14] MEDS ORDERED: ONDANSETRON 4 MG INJ IV PRN ×2 (14:30→16:00)
[2016-12-14] MEDS ORDERED: ACETAMINOPHEN 325 MG TAB PO PRN (14:30)
[2016-12-14] MEDS ORDERED: LIDOCAINE 1% (MPF) 5 ML VIAL ONE (14:54)
--- NOTE | 2016-12-14 15:22 | RADRPT ---
PROCEDURE: Noncontrast CT Head. CLINICAL INDICATION: Confusion. TECHNIQUE: Noncontrast CT of the head was obtained. The administered radiation dose was CTDI vol = 45.01 mGy, DLP = 720.23 mGy-cm. One or more of the following dose reduction techniques were used: Au tomated exposure control, Adjustment of the mA and/or kV according to patient size, or Use of iterat lily reconstruction technique. COMPARISON: There are no similar studies submitted for comparison. FINDINGS: There is a right frontal craniotomy. There is mild generalized cerebral volume loss. There is a cavum septum pellucidum et vergae which is a normal variant. There are mild vascular torie cifications within the intracranial carotid arteries. There is no loss of damico-white differentiation to suggest acute territorial infarction. There is no acute intracranial hemorrhage or extra-axial fluid collection. There is no mass effect. No midline shift is identified. The orbits are within normal limits. The paranasal sinuses are well aerated. No destructive osseous lesion is identified. IMPRESSION: 1. No acute intracranial hemorrhage or extra-axial fluid collection. 2. Mild generalized cerebral volume loss. 3. Right frontal craniotomy. Further findings as detailed above. RPTAT: PP .Dwight Merida MD, Date Time Electronically viewed and signed by .Dwight Merida MD, MD on 12/14/2016 15:21 .F/
[2016-12-14] MEDS ORDERED: morphine 2 MG INJ IV PRN (16:00)
[2016-12-14] MEDS ORDERED: NACL 0.9% 3 ML SYG IV SCH (16:00)
--- NOTE | 2016-12-14 16:20 | RADRPT ---
PROCEDURE: Ultrasound guided paracentesis. CLINICAL INDICATION: Ascites and shortness of breath. COMPARISON: No prior studies are available for comparison. TECHNIQUE: The risks, benefits, and alternatives were explained to the patient and/or the patient's family, inc luding but not limited to bleeding, infection, pain, visceral or vascular damage, shock, and . The patient and/or the patient's family understood the risks and the alternatives and wished to pro ceed with the procedure. Informed written consent was obtained. A procedural time out was performed . The patient's name, date of , and procedure to be performed were verified. Utilizing ultrasound guidance, optimal location for entry to the peritoneal cavity was ascertained. The overlying skin was prepped and draped in the usual sterile fashion. Approximately 10 ml of 1% Xylocaine was injected locally for pain control. Using ultrasound guidance, an 8 [place] catheter wa s introduced into the peritoneal cavity in the right lower quadrant without difficulty. FINDINGS: Initial images demonstrate ascites. Approximately 2.8 liters of serous fluid was aspirated and disc arded. The patient tolerated the procedure well without complication. IMPRESSION: 1. Successful ultrasound-guided paracentesis. RPTAT: QQ .Henry Ramires MD, Date Time Electronically viewed and signed by .Henry Ramires MD, on 12/14/2016 16:20 .R/
[2016-12-14] MEDS: SOD CHLORIDE 0.9% 1,000 ML IV SCH (16:29)
[2016-12-14] MEDS ORDERED: LACTULOSE 30ML CUP PO SCH (16:30)
--- NOTE | 2016-12-14 16:31 | HP ---
DATE OF ADMISSION: 12/14/2016 CHIEF COMPLAINT: Confusion. HISTORY OF PRESENT ILLNESS: The patient is a 50-year-old male with a history of cirrhosis from [facility]. The patient presents with a gradual onset of worsening confusion, progressive generalized weakn ess and confusion for the last 2 weeks. The patient is not ambulating. Patient was recently hospit alized for hepatic encephalopathy. The patient is on lactulose and he is compliant with his medicat ions. The patient does state that he is following often, but denies any trauma. The patient report edly had a large volume of bright red blood per rectum earlier. No vomiting or hematemesis. No fev ers. The patient was told in the past that he is not a candidate for a liver transplant. His last d rink was 2 months ago. The patient also has had increased lower extremity edema over the last 3 wee ks. The patient is a poor historian and history was obtained by the patient's daughter who is at the bedside, as well as past medical documentation. PAST MEDICAL HISTORY: Alcohol-related cirrhosis, now end-stage. HOME MEDICATIONS: Aldactone, furosemide, lactulose, vitamin B. ALLERGIES: NO KNOWN DRUG ALLERGIES. FAMILY HISTORY: Noncontributory. SOCIAL HISTORY: A history of alcohol abuse. His last drink was 2 months ago. No substance abuse o r tobacco abuse. REVIEW OF SYSTEMS: A 12-point review of systems was difficult to obtain secondary to the patient's poor mentation. PHYSICAL EXAMINATION: VITAL SIGNS: Temperature is 98.1, pulse 66, respiratory rate is 20, blood pressure is 99/64, satura tions of 99% on room air. GENERAL: Confused. HEENT: Normocephalic, atraumatic. Scleral icterus noted. LUNGS: Clear to auscultation. ABDOMEN: Mildly distended. EXTREMITIES: No clubbing or cyanosis. Edema is 2+. LABORATORY: White count is 8.1, hemoglobin 13.4, platelets are 31. Sodium is 118, potassium is 2.4 , chloride is 81, BUN is 27, AST is 195, ALT is 108. Alkaline phosphatase is 45. Ammonia is 34. I NR is 2.9. UA is within normal limits, except for 3+ bilirubin. DIAGNOSTICS: Brain CT shows no acute findings. Right frontal craniotomy. Chest x-ray shows low jose de jesus ng volumes, with basilar atelectasis. ASSESSMENT AND PLAN: 1. End-stage alcoholic liver cirrhosis. The patient has progression of his weakness, confusion. T he patient is compliant with his medications, but continues to decline. The patient has been told th at he is not a candidate for a liver transplant, as his last drink was 2 months ago. Recommendation is for palliation. Will continue Aldactone, as well as lactulose. 2. Ascites secondary to cirrhosis. Status post paracentesis. 3. Abdominal distention has improved. Will continue with diuretics. 4. Hypernatremia secondary to end-stage cirrhosis. 5. Transaminitis secondary to cirrhosis. 6. Coagulopathy secondary to cirrhosis. 7. Prophylaxis with SCDs. Dictated By: SAMINA ERICKSON/SHYAM Conf#: [id number] DID#: [id number]
[2016-12-14 17:14] LABS: FLUID APPEARANCE SLIGHTLY HAZY; FLUID TYPE PARACENTHESIS
[2016-12-14 17:15] LABS: FLUID LYMPHOCYTES 58 %; FLUID MONOCYTES 17 %; FLUID NEUTROPHILS 25 %; FLUID RBC EST 2+; FLUID WBC'S 44 /cmm
[2016-12-14 17:59] VITALS: PULSE 66
[2016-12-14] MEDS: SPIRONOLACTONE 50 MG TAB PO SCH (18:00)
[2016-12-14] MEDS: FUROSEMIDE 20 MG TAB PO SCH (18:00)
[2016-12-14 18:29] VITALS: Ht 157.5 cm; Wt 79.7 kg
[2016-12-14 18:48] VITALS: BP 121/57; PULSE 67; RESP 18
[2016-12-14 20:00] VITALS: BP 95/52; RESP 17
[2016-12-14 20:07] VITALS: PULSE 65
[2016-12-14] MEDS: LACTULOSE 30ML CUP PO SCH (22:08)
[2016-12-15] VITALS (10 sets, daily range): BP systolic 95–115; BP diastolic 54–63; PULSE 66–77; RESP 17–19
[2016-12-15] MEDS: LACTULOSE 30ML CUP PO SCH ×3 (06:23→21:53)
[2016-12-15] MEDS: SPIRONOLACTONE 50 MG TAB PO SCH ×2 (06:24→17:14)
[2016-12-15] MEDS: FUROSEMIDE 20 MG TAB PO SCH ×2 (06:24→17:15)
[2016-12-15 07:43] LABS: ADD SCAN DIFF NO
[2016-12-15 07:48] LABS: ABNORMAL IP MESSAGE 1; BASOPHILS % 0.4 % (0.0-2.0); EOSINOPHILS # 0.2 10^3/ul (0.0-0.5); EOSINOPHILS % 3.1 % (0.0-7.0); HEMATOCRIT 33.8 % (42.0-52.0); HEMOGLOBIN 11.9 g/dl (14.0-18.0); LYMPHOCYTES # 0.8 10^3/ul (0.8-2.9); LYMPHOCYTES % 9.9 % (15.0-51.0); MEAN CORPUSCULAR HEMOGLOBIN 34.7 pg (29.0-33.0); MEAN CORPUSCULAR HGB CONC 35.2 g/dl (32.0-37.0); MEAN CORPUSCULAR VOLUME 98.5 fl (82.0-101.0); MEAN PLATELET VOLUME 11.4 fl (7.4-10.4); MONOCYTE # 0.8 10^3/ul (0.3-0.9); MONOCYTES % 10.5 % (0.0-11.0); NEUTROPHIL # 5.8 10^3/ul (1.6-7.5); NEUTROPHILS % 75.5 % (39.0-77.0); RED BLOOD COUNT 3.43 10^6/ul (4.70-6.10); RED CELL DISTRIBUTION WIDTH 15.3 % (11.5-14.5); WHITE BLOOD COUNT 7.7 10^3/ul (4.8-10.8)
[2016-12-15 08:02] LABS: PLATELET COUNT 27 10^3/UL (140-415)
[2016-12-15 08:05] LABS: ALBUMIN 2.1 g/dl (3.3-4.9); ALBUMIN/GLOBULIN RATIO 0.47; BILIRUBIN,DIRECT 11.7 mg/dl (0.00-0.20); BILIRUBIN,INDIRECT 3.8 mg/dl (0-1.1); BILIRUBIN,TOTAL 15.5 mg/dl (0.2-1.3); CALCIUM 7.7 mg/dl (8.4-10.2); POTASSIUM 3.3 mmol/L (3.5-5.1); TOTAL PROTEIN 6.5 g/dl (6.1-8.1)
--- NOTE | 2016-12-15 11:38 | CONS ---
Date/Time of Note Date/Time of Note DATE: 12/15/16 TIME: 11:38 Assessment/Plan Assessment/Plan Additional Assessment/Plan Transaminitis Likely secondary to alcoholic liver cirrhosis Acute Hepatitis panel Trend LFTs History of gallstones Review MRCP Rule out choledocholithiasis Review lipase and amylase Thrombocytopenia Monitor platelet count daily Transfuse platelets to keep above 50,000 Bright red blood per rectum Stool OB Continue to monitor May require colonoscopy, patient advised of risks/benefits/alternatives procedure and he is agreeable to proceed History of hepatic encephalopathy Continue lactulose and rifaximin Monitor ammonia Further recommendations depend on clinical course Patient seen in collaboration with Dr. Cummins Consultation Date/Type/Reason Admit Date/Time Dec 14, 2016 at 14:32 Type of Consultation: Gastroenterology Reason for Consultation Ascites and transaminitis Hx of Present Illness Mr. Trino Mera is a 50-year-old male that presents to emergency room secondary to increased abdominal girth and abdominal pain. Patient has history of alcoholic liver cirrhosis. Presently patient not candidate for liver transplant and reports last alcohol consumption 2 months ago. In ED patient underwent ultrasound-guided paracentesis of 2.8 L of serous fluid was aspirated and discarded. In addition to worsening abdominal girth, patient had one episode of bright red blood per rectum. Patient denies previous episode. Patient reports normal colonoscopy 2 years ago. Patient denies fever, chills, nausea, vomiting. Patient reports slight right upper quadrant abdominal pain with palpation. Social History Smoking Status: Never smoker Exam/Review of Systems Vital Signs Vitals Vital Signs Date Time Temp Pulse Resp B/P Pulse Ox O2 Delivery O2 Flow Rate FiO2 12/15/16 08:17 73 12/15/16 07:30 97.9 18 101/59 96 12/14/16 18:48 Room Air Intake and Output 12/14/16 12/14/16 12/15/16 15:00 23:00 07:00 Output Total 200 ml Balance -200 ml Exam Constitutional: alert, oriented, well developed, Psych: nl mood/affect Head: normocephalic Eyes: EOMI, icteric, nl lids ENMT: nl external ears & nose, nl lips & teeth, nl nasal mucosa & septum Respiratory: clear to auscultation, normal air movement Cardiovascular: regular rate and rhythm Skin: Jaundice Gastrointestinal: soft, slight left upper quadrant tenderness Musculoskeletal: nl extremities to inspection Neurological: MEDICAL DIR II-XII intact Results Result Diagram: 12/15/16 0620 12/15/16 0628 Results 24 hrs Laboratory Tests Test 12/14/16 12:58 12/14/16 13:00 12/15/16 06:20 12/15/16 06:28 Body Fluid Type PARACENTHESIS Body Fluid Volume 18.0 Body Fluid Color YELLOW Body Fluid Appearance SLIGHTLY HAZY Body Fluid WBC 44 Body Fluid RBC 2+ Body Fluid Neutrophils % 25 Body Fluid Lymphocytes (%) 58 Body Fluid Monocytes % 17 Urine Color DORETHA Urine Clarity CLEAR Urine pH 6.5 Urine Specific [place] <=1.005 L Urine Ketones NEGATIVE Urine Nitrite NEGATIVE Urine Bilirubin 3+ H Urine Ictotest POSITIVE Urine Urobilinogen 0.2 E.U./dL Urine Leukocyte Esterase NEGATIVE Urine Hemoglobin NEGATIVE Urine Glucose 0.25% H Urine Total Protein NEGATIVE White Blood Count 7.7 Red Blood Count 3.43 L Hemoglobin 11.9 L Hematocrit 33.8 L Mean Corpuscular Volume 98.5 Mean Corpuscular Hemoglobin 34.7 H Mean Corpuscular Hemoglobin Concent 35.2 Red Cell Distribution Width 15.3 H Platelet Count 27 *L Mean Platelet Volume 11.4 H Neutrophils % 75.5 Lymphocytes % 9.9 L Monocytes % 10.5 Eosinophils % 3.1 Basophils % 0.4 Nucleated Red Blood Cells % 0.0 Neutrophils # 5.8 Lymphocytes # 0.8 Monocytes # 0.8 Eosinophils # 0.2 Basophils # 0.0 Nucleated Red Blood Cells # 0.0 Sodium Level 121 L Potassium Level 3.3 L Chloride Level 90 L Carbon Dioxide Level 26 Anion Gap 8 Blood Urea Nitrogen 23 H Creatinine 1.00 Glucose Level 126 Calcium Level 7.7 L Total Bilirubin 15.5 H Direct Bilirubin 11.70 H Indirect Bilirubin 3.8 H Aspartate Amino Transf (AST/SGOT) 169 H Alanine Aminotransferase (ALT/SGPT) 102 H Alkaline Phosphatase 205 H Total Protein 6.5 # Albumin 2.1 L Globulin 4.40 H Albumin/Globulin Ratio 0.47 Medications Medications Current Medications Sodium Chloride (NS) 1,000 ml @ 50 mls/hr Q20H IV Last administered on t 16:29; Admin Dose 50 MLS/HR; Start 12/14/16 at 16:00 Ondansetron HCl (Zofran Inj) 4 mg Q6H PRN IV NAUSEA AND/OR VOMITING; Start at 16:00 Morphine Sulfate (morphine) 2 mg Q4H PRN IV SEVERE PAIN LEVEL 7-10; Start 12/14 at 16:00 Lactulose (Enulose) 20 gm Q8 PO Last administered on 12/15/16 06:23; Admin Dose 20 GM; Start 12/14/16 at 22:00 CRISTINA JACKSON Dec 15, 2016 11:38
[2016-12-15] MEDS: SOD CHLORIDE 0.9% 1,000 ML IV SCH (12:00)
[2016-12-15 12:21] LABS: AMYLASE 52 U/L (11-123)
[2016-12-15] MEDS: RIFAXIMIN 550 MG TAB PO SCH ×2 (13:47→21:53)
[2016-12-15] MEDS ORDERED: POTASSIUM CHLORIDE 250 ML IVPB ONE (15:00)
--- NOTE | 2016-12-15 19:46 | DS ---
DATE OF ADMISSION: 12/14/2016 DATE OF DISCHARGE: 12/15/2016 DISCHARGE DIAGNOSES: 1. Endstage alcoholic liver cirrhosis. Discharged with hospice care with home hospice. 2. Ascites secondary to cirrhosis. Status post paracentesis. 3. Bright red blood per rectum, resolved. H and H is stable. 4. Hyponatremia secondary to cirrhosis. HOSPITAL COURSE: The patient is a 50-year-old male with a history of cirrhosis from alcohol abuse. The patient has been continuously declining with worsening confusion and progressive generalized we akness in spite of taking lactulose and having 3 to 4 bowel movements a day. The patient was recent ly hospitalized for hepatic encephalopathy and has since then declined. The patient has been evalua moon by liver transplant, but has been told that he is not a candidate. Also his last drink was 2 mo nths ago. The patient was felt to be appropriate for hospice care. Family did want the patient to be at home with hospice. The patient's daughter spoke to [facility] and it was felt that it was appropriate for the patient to be discharged to home with hospice. The patient did have bright red blood per rectum and was seen by GI during this hospitalization. On day of discharge, the patient's vitals were stable, labs were stable considering his terminal diagnosis, and his physical exam was stable. Family's questions were answered. The patient had no acute complaints on the day of discha rge. CONDITION ON DISCHARGE: Fair. DISPOSITION: To home with hospice with [facility]. MEDICATIONS: The patient to continue his home medications, but was told to increase his lactulose t o twice a day. FOLLOWUP: The patient is to follow up with hospice agency. Greater than 30 minutes was spent in coordinating the discharge of patient. Dictated By: SAMINA STOLL MD BS/SHYAM Conf#: [id number] DID#: [id number]
[2016-12-16] VITALS (12 sets, daily range): BP systolic 95–105; BP diastolic 56–68; PULSE 73–123; RESP 16–18
[2016-12-16] MEDS: LACTULOSE 30ML CUP PO SCH ×3 (06:06→21:37)
[2016-12-16] MEDS: SPIRONOLACTONE 50 MG TAB PO SCH ×2 (06:06→18:00)
[2016-12-16] MEDS: FUROSEMIDE 20 MG TAB PO SCH ×2 (06:06→18:00)
[2016-12-16] MEDS: SOD CHLORIDE 0.9% 1,000 ML IV SCH (08:00)
--- NOTE | 2016-12-16 08:53 | RADRPT ---
PROCEDURE: MRCP. CLINICAL INDICATION: Right upper quadrant pain. TECHNIQUE: MRCP was performed on the a high-resolution, high Romy field strength scanner. Patien t was examined without contrast. 3-D coronal rotating MIP images of the biliary tree are available for review. COMPARISON: Right upper quadrant ultrasound 11/22/2016. FINDINGS: There is no distension of the gallbladder. There are several sub centimeter gallstones. There is mi ld diffuse wall thickening of the gallbladder likely related to underlying liver disease/ascites. L imited assessment of the biliary tree due to breathing artifacts and presence of ascites. There is no intrahepatic biliary ductal dilatation. The visualized distal common bile duct is not dilated. Small shrunken liver with surface nodularity in keeping with cirrhosis. There is mild splenomegaly. Small to moderate abdominopelvic ascites is noted. Multiple perigastric and perisplenic varices ar e present. IMPRESSION: 1. Multiple gallstones in nondistended gallbladder. Mild diffuse wall thickening of the gallbladder likely related to underlying liver disease/ascites. 2. No intrahepatic biliary ductal dilatation. Normal caliber distal common bile duct. The visualiz ation of the biliary tree is very limited due to breathing artifacts and presence of the ascites. 3. Morphologic changes of cirrhosis. 4. Stigmata of portal hypertension with evidence of mild to moderate ascites, splenomegaly, perispl enic and perigastric varices. RPTAT: AAEE .Misty Antoine MD, Date Time Electronically viewed and signed by .Misty Antoine MD, on 12/16/2016 08:53 .O/
[2016-12-16] MEDS: RIFAXIMIN 550 MG TAB PO SCH ×2 (10:05→21:37)
--- NOTE | 2016-12-16 13:23 | PN ---
Date/Time of Note Date/Time of Note DATE: 12/16/16 TIME: 13:16 Assessment/Plan VTE Prophylaxis VTE Prophylaxis Intervention: SCD's Lines/Catheters IV Catheter Type (from Nrsg): Peripheral IV Assessment/Plan Assessment/Plan Assessment * Ascites/Jaundice * Alcoholic Cirrhosis of Liver * Hyponatremia Plan * continue present management * patient is on hospice care Subjective 24 Hr Interval Summary Free Text/Dictation * Course reviewed with RN * Patient seen and examined * denies any abdominal pain Exam/Review of Systems Vital Signs Vitals Vital Signs Date Time Temp Pulse Resp B/P Pulse Ox O2 Delivery O2 Flow Rate FiO2 12/16/16 12:31 73 12/16/16 11:44 98.8 16 101/63 93 12/14/16 18:48 Room Air Intake and Output 12/15/16 12/15/16 12/16/16 15:00 23:00 07:00 Intake Total 360 ml 1020 ml Balance 360 ml 1020 ml Exam Constitutional: alert, frail Head: normocephalic Eyes: icteric Neck: non-tender, supple Respiratory: diminished breath sounds, normal air movement Cardiovascular: nl pulses, regular rate and rhythm Gastrointestinal: ascites, bowel sounds, distended, non-tender, soft Musculoskeletal: nl extremities to inspection, nl gait and stance Extremities: normal pulses Neurological: nl speech Skin: nl turgor, rash or lesions Results Result Diagram: 12/15/16 0620 12/15/16 0628 Medications Medications Current Medications Sodium Chloride (NS) 1,000 ml @ 50 mls/hr Q20H IV Last administered on 16:29; Admin Dose 50 MLS/HR; Start 12/14/16 at 16:00 Ondansetron HCl (Zofran Inj) 4 mg Q6H PRN IV NAUSEA AND/OR VOMITING; Start at 16:00 Morphine Sulfate (morphine) 2 mg Q4H PRN IV SEVERE PAIN LEVEL 7-10; Start 12/14 at 16:00 Lactulose (Enulose) 20 gm Q8 PO Last administered on 12/16/16 06:06; Admin Dose 20 GM; Start 12/14/16 at 22:00 Rifaximin (Xifaxan) 550 mg BID PO Last administered on 12/16/16 10:05; Admin Dose 550 MG; Start 12/15/16 at 13:00 CLARIBEL DIAZ MD December 16, 2016 13:23
--- NOTE | 2016-12-16 14:52 | PN ---
Date/Time of Note Date/Time of Note DATE: 12/16/16 TIME: 14:50 Assessment/Plan VTE Prophylaxis VTE Prophylaxis Intervention: SCD's Lines/Catheters IV Catheter Type (from Nrsg): Peripheral IV Assessment/Plan Chief Complaint/Hosp Course Assessment 1. End-stage liver disease secondary to EtOH 2. Thrombocytopenia secondary to above 3. Hyponatremia likely secondary to SIADH Plan 1. Patient to be discharged home on home hospice 2. Appears comfortable at present no need for increased pain medications Problems: Subjective 24 Hr Interval Summary Free Text/Dictation Patient opens eyes appears comfortable at rest Exam/Review of Systems Vital Signs Vitals Vital Signs Date Time Temp Pulse Resp B/P Pulse Ox O2 Delivery O2 Flow Rate FiO2 12/16/16 12:31 73 12/16/16 11:44 98.8 16 101/63 93 12/14/16 18:48 Room Air Intake and Output 12/15/16 12/15/16 12/16/16 15:00 23:00 07:00 Intake Total 360 ml 1020 ml Balance 360 ml 1020 ml Exam GENERAL: Chronically ill-appearing gentleman jaundice VITAL SIGNS: per chart NECK: Supple. No JVD or lymphadenopathy. Icteric sclera CARDIAC EXAM: S1, S2. No added sounds or murmurs. CHEST: clear bilaterally, No added sounds, rales or wheezes ABDOMEN: Mild discomfort but no guarding or rebound EXTREMITIES: No cyanosis, clubbing or edema. NEUROLOGIC: Generalized weakness. Results Result Diagram: 12/15/16 0620 12/15/16 0628 Medications Medications Current Medications Sodium Chloride (NS) 1,000 ml @ 50 mls/hr Q20H IV Last administered on 16:29; Admin Dose 50 MLS/HR; Start 12/14/16 at 16:00 Ondansetron HCl (Zofran Inj) 4 mg Q6H PRN IV NAUSEA AND/OR VOMITING; Start at 16:00 Morphine Sulfate (morphine) 2 mg Q4H PRN IV SEVERE PAIN LEVEL 7-10; Start 12/14 at 16:00 Lactulose (Enulose) 20 gm Q8 PO Last administered on 12/16/16 14:21; Admin Dose 20 GM; Start 12/14/16 at 22:00 Rifaximin (Xifaxan) 550 mg BID PO Last administered on 5/1/17at 10:05; Admin Dose 550 MG; Start 12/15/16 at 13:00 MILTON SHAIKH MD, [facility] December 16, 2016 14:52
[2016-12-17 00:02] VITALS: PULSE 75
[2016-12-17 00:34] VITALS: BP 99/57; RESP 19
[2016-12-17 04:00] VITALS: BP 103/59; RESP 17
[2016-12-17] MEDS: SOD CHLORIDE 0.9% 1,000 ML IV SCH (04:00)
[2016-12-17 04:02] VITALS: PULSE 72
[2016-12-17] MEDS: SPIRONOLACTONE 50 MG TAB PO SCH (06:39)
[2016-12-17] MEDS: LACTULOSE 30ML CUP PO SCH (06:39)
[2016-12-17] MEDS: FUROSEMIDE 20 MG TAB PO SCH (06:40)
[2016-12-17 07:55] VITALS: BP 103/62; RESP 18
[2016-12-17 08:12] VITALS: PULSE 69
[2016-12-17] MEDS: RIFAXIMIN 550 MG TAB PO SCH (08:42)
--- NOTE | 2016-12-17 18:19 | DS ---
DATE OF ADMISSION: 12/14/2016 DATE OF DISCHARGE: 12/17/2016 DISCHARGE DIAGNOSIS: End-stage liver disease, placed on hospice. HOSPITAL COURSE: This is an unfortunate 50-year-old gentleman with a history of alcoholic cirrhosis , confusion with progressive hepatic encephalopathy, recent episode of acute GI bleed with bright re d blood per rectum, deemed not a candidate for liver transplant. His last alcoholic drink was 2 mon ths ago. The patient was seen by primary care team, evaluated, and subsequently placed on hospice a fter discussion with family. Discharged on 12/17/2016 with hospice care. CONDITION ON DISCHARGE: Stable. Dictated By: MILTON SHAIKH MD SV/NTS Conf#: [id number] DID#: [id number] CC: SAMINA STOLL MD;*EndCC*
== END 2016-12-17 10:46 | disposition hospice, home (50) | DRG 433 ==
LOC: E/R 09:18 → MS4 14:32
PROVIDERS: ADMIT Internal Medicine; ATTEND Internal Medicine
PROC: 0W9G3ZZ Drainage of Peritoneal Cavity, Percutaneous Approach (ICD-10-PCS; principal; 2016-12-14)
PROC: 30233R1 Transfusion of Nonautologous Platelets into Peripheral Vein, Percutaneous Approach (ICD-10-PCS; 2016-12-15)
DX: K70.31 Alcoholic cirrhosis of liver with ascites (principal); K62.5 Hemorrhage of anus and rectum; K70.40 Alcoholic hepatic failure without coma; D68.9 Coagulation defect, unspecified; D69.6 Thrombocytopenia, unspecified; E22.2 Syndrome of inappropriate secretion of antidiuretic hormone; R17 Unspecified jaundice
CPT/HCPCS: 36430; 70450; 71010; 74181; 80053; 81003; 82140; 82150; 83690; 85025; 85610; 86644; 86850; 86900; 86901; 86945; 87070; 87081; 87102; 87116; 89050; 93005; J3480; J7030; P9035